=== PATIENT | male | born 1970 | race Caucasian/White ===

== ENCOUNTER 2024-07-26 21:11 | Emergency (ER) | payer BC ==
[~2024-07-26] VITALS: Ht 180.3 cm; Wt 117.9 kg
[2024-07-26 21:39] VITALS: BP 153/94; TEMP 98.6; O2SAT 98
[2024-07-26] MEDS ORDERED: CIPR2.5D14 RIGHTEYE (22:21)
== END 2024-07-26 22:58 | disposition home or self-care (01) ==
LOC: ER 21:53
DX: H10.89 Other conjunctivitis (principal); J30.81 Allergic rhinitis due to animal (cat) (dog) hair and dander; E11.9 Type 2 diabetes mellitus without complications